=== PATIENT | male | born 1985 | race American Indian/Alaskan Native ===

== ENCOUNTER 2016-09-25 22:25 | Emergency (ER) | payer SELFPAY ==
[2016-09-25] MEDS ORDERED: TYLENOL ONE (22:45)
[2016-09-25] MEDS ORDERED: TYLENOL PO ONE (22:49)
[2016-09-26] MEDS ORDERED: ZOFRAN IV ONE (00:26)
[2016-09-26] MEDS ORDERED: TORADOL IV ONE (00:26)
[2016-09-26] MEDS ORDERED: DILAUDID IV ONE (00:26)
[2016-09-26] MEDS ORDERED: TRIPLE ANTIBIOTIC TP ONE (00:30)
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
--- NOTE | 2016-09-26 00:58 | XRay Report ---
FINAL REPORT PROCEDURE: XR WRIST 3 LT TECHNIQUE: Left wrist radiographs, including AP, lateral, and oblique views. CPT 47819 HISTORY: Fall,LT WRIST pain, send for report COMPARISON: No prior studies are available for comparison. FINDINGS: Fracture (s) and/or Dislocation(s): None . Alignment: Normal . Joint space(s): Normal . Soft tissues: Normal . Bone mineralization: Normal . Foreign bodies: None . IMPRESSION: Normal Examination.
--- NOTE | 2016-09-26 01:03 | XRay Report ---
FINAL REPORT PROCEDURE: XR HAND 3 LT TECHNIQUE: Left hand radiographs, AP, lateral, and oblique views. CPT 27940 HISTORY: Fall, LT HAND pain, send for report COMPARISON: No prior studies are available for comparison. FINDINGS: Fracture (s) and/or Dislocation(s): None . Alignment: Normal . Joint space(s): Normal . Soft tissues: Normal . Bone mineralization: Normal . Foreign bodies: None . IMPRESSION: Normal Examination .
--- NOTE | 2016-09-26 01:18 | XRay Report ---
FINAL REPORT PROCEDURE: XR ELBOW 2V LT TECHNIQUE: LEFT elbow radiographs, including AP and lateral views. HISTORY: Fall, pain, send for report COMPARISON: No prior studies are available for comparison. FINDINGS: Fracture (s) and/or Dislocation(s): None . Alignment: Normal . Joint space(s): Normal . Soft tissues: Normal . Bone mineralization: Normal . Foreign bodies: None . IMPRESSION: Normal Examination
--- NOTE | 2016-09-26 01:38 | XRay Report ---
FINAL REPORT PROCEDURE: XR FOREARM LT TECHNIQUE: LEFT forearm radiographs, AP and lateral views. CPT 32669 HISTORY: Fall, LT FOREARM pain, send for report COMPARISON: No prior studies are available for comparison. FINDINGS: Fracture (s) and/or Dislocation(s): There is a transverse slightly displaced fracture of the distal 3rd of the radius. The ulna is intact.. Joint space(s): Normal . Soft tissues: There is soft tissue swelling of the forearm. There is no discrete mass.. Bone mineralization: Normal . Foreign bodies: None . IMPRESSION: Fracture of the radius.
[2016-09-26 01:54] VITALS: BP 117/78
--- NOTE | 2016-09-26 10:15 | XRay Report ---
X-ray LEFT FOREARM TWO VIEWS : 09/26/16 01:06 CLINICAL: Status post splinting of a radius fracture. COMPARISON: 09/25/16 23:10 FINDINGS: Oblique fracture of the radius and junction of middle and distal thirds with dorsal displacement of the major distal fracture fragment by one shaft width. Only slight displacement in the AP direction. A splint has been applied. IMPRESSION: Acute traumatic closed displaced radius fracture status post splinting.
== END 2016-09-26 01:55 | disposition home or self-care (01) ==
LOC: ED 22:25
DX: S52.392A Other fracture of shaft of radius, left arm, initial encounter for closed fracture (principal); W20.8XXA Other cause of strike by thrown, projected or falling object, initial encounter; Y93.I9 Activity, other involving external motion; Y99.8 Other external cause status; Y92.410 Unspecified street and highway as the place of occurrence of the external cause
CPT/HCPCS: 29105; 73070; 73090; 73110; 73130; 96374; 96375; 99283; J1170; J1885; J2405; A6250